=== PATIENT | female | born 1955 | race Caucasian/White ===

== ENCOUNTER → 2017-06-18 | Outpatient (CLI) | payer OTHER ==
--- NOTE | 2017-06-18 14:50 | Diagnostic Imaging Report ---
PROCEDURE: X-RAY CHEST, TWO VIEWS COMPARISON: None. INDICATIONS: ABDOMINAL PAIN, EPIGASTIC PAIN, CONSTIPATION FINDINGS: LUNGS: No consolidations or edema. PLEURA: No effusions or pneumothorax. HEART \T\ MEDIASTINUM: The heart is within normal size-limits. BONES \T\ SOFT TISSUES: No acute findings. CONCLUSION: No acute thoracic abnormality. Dictated by: James Jauregui M.D. on 06/18/2017 at 15:00 Electronically approved by: James Jauregui M.D. on 06/18/2017 at 15:00
--- NOTE | 2017-06-18 15:12 | Diagnostic Imaging Report ---
PROCEDURE:X-RAY ABDOMEN - KUB COMPARISON:None. INDICATIONS:ACUTE RESPIRATORY INFECTION FINDINGS: There is a non-obstructed bowel-gas pattern. Suture material and a loop of tubing overlies the epigastric region. There are no calcifications projected over the renal shadows, expected course of the ureters or bladder. There are no acute osseous abnormalities. CONCLUSION: Nonobstructive bowel gas pattern. Suture material and a nonspecific loop of tubing overlies the epigastric region. Dictated by: James Jauregui M.D. on 06/18/2017 at 15:21 Electronically approved by: James Jauregui M.D. on 06/18/2017 at 15:21
== END ==
LOC: RAD 13:48
PROVIDERS: ATTEND Family Medicine
DX: J06.9 Acute upper respiratory infection, unspecified (principal); K59.09 Other constipation
CPT/HCPCS: 71046; 74018

== ENCOUNTER 2017-09-11 08:41 | Observation (INO) | payer OTHER ==
[~2017-09-11] VITALS: Ht 162.6 cm; Wt 77.2 kg
--- OUTSIDE RECORDS SUMMARY | 2017-09-11 08:43 | XMS REPORT ---
Author Author [facility] Address Unknown Phone Unavailable Care Team Providers Care Managed Care Liaison Name Role Phone PEDRO PABLO MUNOZ Unavailable Unavailable Problems This patient has no known problems. Allergies, Adverse Reactions, Alerts This patient has no known allergies or adverse reactions. Medications This patient has no known medications. Results Test Description Test Time Test Comments Text Results Atomic Results Result Comments CHEST 2 VIEWS [place] [id number] [place] [id number] Patient Name: YULIA SUAZO MR #: [id number] : 1955 Age/Sex: 62/F Req #: [id number] Adm Physician: Ordered by: PEDRO PABLO MUNOZ MD Report #: [id number] Location: [facility] Room/Bed: _ Procedure: [id number] DX/CHEST 2 VIEWS Exam Date: Exam Time: REPORT STATUS: Signed PROCEDURE: X-RAY CHEST, TWO VIEWS COMPARISON: None. INDICATIONS: ABDOMINAL PAIN, EPIGASTIC PAIN, CONSTIPATION FINDINGS: LUNGS: No consolidations or edema. PLEURA: No effusions or pneumothorax. HEART T MEDIASTINUM: The heart is within normal size-limits. BONES T SOFT TISSUES: No acute findings. CONCLUSION: No acute thoracic abnormality. Dictated by: James Adrian M.D. on 06/18/2017 at 15:00 Electronically approved by : James Adrian M.D. on 06/18/2017 at 15:00 Dictated By: JAMES ADRIAN MD 1500 Transcribed By: ABELINO on 06/18/17 1500 COPY TO: PEDRO PABLO MUNOZ MD ABDOMEN-1VIEW (KUB) [place] [address] Patient Name: YULIA SUAZO MR #: [id number] : 1955 Age/Sex: 62/F Req #: [id number] Adm Physician: Ordered by: PEDRO PABLO MUNOZ MD Report #: [id number] Location: [facility] Room/Bed: _ Procedure: [id number] DX/ABDOMEN-1VIEW (KUB) Exam Date: 06/18/17 Exam Time: 1425 REPORT STATUS: Signed PROCEDURE: X- RAY ABDOMEN - KUB COMPARISON: None. INDICATIONS: ACUTE RESPIRATORY INFECTION FINDINGS: There is a non-obstructed bowel-gas pattern. Suture material and a loop of tubing overlies the epigastric region. There are no calcifications projected over the renal shadows, expected course of the ureters or bladder. There are no acute osseous abnormalities. CONCLUSION: Nonobstructive bowel gas pattern. Suture material and a nonspecific loop of tubing overlies the epigastric region. Dictated by: James Adrian M.D. on 06/18/2017 at 15:21 Electronically approved by: Jamse Adrian M.D. on 06/18/2017 at 15:21 Dictated By: JAMES ADRIAN MD 1521 Transcribed By: ABELINO on 06/18/17 1521 COPY TO: PEDRO PABLO MUNOZ MD
[2017-09-11] MEDS ORDERED: HYDROMORPHONE 1MG/1ML INJ IV STA (08:56)
[2017-09-11] MEDS ORDERED: ONDANSETRON HCL INJ 2 MG/ML VIAL IV STA (08:56)
[2017-09-11] MEDS ORDERED: SODIUM CHLORIDE 0.9% 1000ML 1,000 ML IV STA (08:56)
[2017-09-11] MEDS ORDERED: HYDROMORPHONE 2MG/ML INJ IV NR (09:15)
[2017-09-11] MEDS ORDERED: ONDANSETRON HCL 4 MG ORAL DISINTEGRATING TAB PO ONE (09:15)
[2017-09-11 09:17] LABS: BASOPHILS # (AUTO) 0.1 (0.0-0.1); EOSINOPHILS # (AUTO) 0.3 (0.0-0.4); EOSINOPHILS % 3.2 % (0.0-6.0); HEMATOCRIT 44.9 % (34.2-44.1); HEMOGLOBIN 15.2 g/dL (12.0-16.0); LYMPHOCYTES # (AUTO) 3.7 (1.0-3.2); LYMPHOCYTES % 35.5 % (18.0-39.1); MEAN CORPUSCULAR HEMOGLOBIN 28.9 pg (28-32); MEAN CORPUSCULAR HGB CONC 33.9 g/dL (31-35); MEAN CORPUSCULAR VOLUME 85.4 fL (81-99); MONOCYTES # (AUTO) 0.8 (0.2-0.8); NEUTROPHILS # (AUTO) 5.4 (2.1-6.9); NEUTROPHILS % 51.6 % (38.7-80.0); PLATELET COUNT 324 x10e3/uL (140-360); RED BLOOD COUNT 5.26 x10e6/uL (3.6-5.1); RED CELL DISTRIBUTION WIDTH 14.7 % (11.7-14.4)
[2017-09-11 09:26] LABS: CLARITY,URINE SL CLOUDY (CLEAR); COLOR,URINE YELLOW (YELLOW); KETONES,URINE NEGATIVE (NEGATIVE); LEUKOCYTE ESTERASE ,URINE NEGATIVE (NEGATIVE); NITRITE,URINE NEGATIVE (NEGATIVE); PROTEIN,URINE DIPSTICK TRACE (NEGATIVE); URINE UROBILINOGEN 0.2 mg/dL (0.2 - 1)
[2017-09-11 09:27] LABS: BILIRUBIN,URINE 1+ (NEGATIVE)
[2017-09-11 09:29] LABS: AMPHETAMINES SCREEN,URINE POSITIVE (NEGATIVE); BENZODIAZEPINES SCREEN,URINE POSITIVE (NEGATIVE); PHENCYCLIDINE SCREEN,URINE NEGATIVE (NEGATIVE)
[2017-09-11 09:35] LABS: ALANINE AMINOTRANSFERASE 16 IU/L (0-55); ALBUMIN 4.2 g/dL (3.5-5.0); ALBUMIN/GLOBULIN RATIO 0.9 (0.8-2.0); ALKALINE PHOSPHATASE 103 IU/L (40-150); ANION GAP 15.7 mmol/L (8-16); BLOOD UREA NITROGEN 8 mg/dL (7-26); BUN/CREATININE RATIO 9 (6-25); CALCIUM 9.8 mg/dL (8.4-10.2); CARBON DIOXIDE 24 mmol/L (22-29); CHLORIDE 102 mmol/L (98-107); CREATINE KINASE 152 IU/L (29-168); CREATININE, SERUM 0.93 mg/dL (0.57-1.11); EST GLOMERULAR FILTRATION RATE > 60 ML/MIN (60-); GLUCOSE 110 mg/dL (74-118); LIPASE 18 U/L (8-78); POTASSIUM 3.7 mmol/L (3.5-5.1); SODIUM 138 mmol/L (136-145)
[2017-09-11 09:44] LABS: BACTERIA,URINE FEW /HPF; EPITHELIAL CELLS,URINE FEW /LPF; RBC,URINE 0-5 /HPF (0-5); WBC,URINE (MAN) 0-5 /HPF (0-5)
[2017-09-11] MEDS ORDERED: ASPIRIN 81 MG CHEW TAB PO STA (09:55)
--- NOTE | 2017-09-11 11:44 | Diagnostic Imaging Report ---
PROCEDURE: CT ABDOMEN AND PELVIS WITH CONTRAST TECHNIQUE: The abdomen and pelvis were scanned utilizing a multidetector helical scanner from the diaphragm to the lesser trochanter after the IV administration of 100 cc of Isovue 370 and the oral administration of water. Coronal and sagittal multiplanar reformations were obtained. COMPARISON: Ultrasound abdomen 10/23/2015. INDICATIONS: UPPER ABDOMINAL PAIN FINDINGS: LOWER THORAX: Normal. HEPATOBILIARY: No focal hepatic lesions. The common bile duct measures 9.0 mm, on series 301 image 33. Trace intrahepatic biliary duct dilation is noted. No radiodense calculi are visualized. SPLEEN: No splenomegaly. PANCREAS: No focal masses or ductal dilatation. ADRENALS: No adrenal nodules. KIDNEYS/URETERS: No hydronephrosis, stones, or solid mass lesions. PELVIC ORGANS/BLADDER: Normal uterus and ovaries. PERITONEUM / RETROPERITONEUM: No free air or fluid. Normal urinary bladder. LYMPH NODES: No lymphadenopathy. VESSELS: Unremarkable. GI TRACT: No distention or wall thickening. Multiple diverticuli are present in the descending and sigmoid colon, without adjacent soft tissue inflammatory changes. Normal appendix. Moderate amount of retained feces limits intraluminal evaluation of the colon. Postoperative changes of the stomach. BONES AND SOFT TISSUES: Unremarkable. IMPRESSION: Dilation of the common bile duct and trace intrahepatic biliary duct dilation. No tomographic evidence of cholelithiasis or choledocholithiasis. Correlate with laboratory values for the need of additional imaging with an abdominal ultrasound or MRCP. Diverticulosis without evidence of diverticulitis. Dictated by: Ignacio Bennett M.D. on 09/11/2017 at 11:45 Electronically approved by: Ignacio Bennett M.D. on 09/11/2017 at 11:45
--- NOTE | 2017-09-11 12:46 | Diagnostic Imaging Report ---
PROCEDURE:GALLBLADDER ULTRASOUND COMPARISON:Same day CT 09/11/2017 INDICATIONS:Abdomen Pain FINDINGS: Liver: 16.2 cm in length in the right mid clavicular line. Normal hepatic parenchymal echogenicity. No focal mass. Main portal vein: 1 cm in diameter, within normal size limits. Hepatopetal flow. Gallbladder: No stones or sludge. No wall thickening. Common Bile Duct: 0.6 cm in diameter, within normal size limits. No echogenic filling defect. Sonographic Goldstein's sign: Negative Right kidney: 10.4 cm in length. No solid or cystic mass, echogenic calculi, or hydronephrosis. Normal parenchymal echogenicity. Pancreas: The visualized portions of the pancreas are normal. Inferior vena cava: Not well visualized secondary to overlying bowel gas. Aorta: Not well visualized secondary to overlying bowel gas. Ascites: None. CONCLUSION: No acute sonographic abnormality. Dictated by: James Jauregui M.D. on 09/11/2017 at 12:47 Electronically approved by: James Jauregui M.D. on 09/11/2017 at 12:47
[2017-09-11 13:00] VITALS: BP 145/75
[2017-09-11] MEDS ORDERED: NITROGLYCERIN 0.4 MG SUBL SL PRN (13:15)
[2017-09-11] MEDS ORDERED: SODIUM CHLORIDE FLUSH 10 ML SYR INJ PRN (13:15)
[2017-09-11] MEDS ORDERED: ASPIRIN 81 MG CHEW TAB PO ONE (13:15)
[2017-09-11] MEDS: FAMOTIDINE 20 MG TAB PO SCH (13:52)
[2017-09-11] MEDS ORDERED: SODIUM CHLORIDE 0.9% 50ML 50 ML ONE (15:21)
[2017-09-11] MEDS ORDERED: IOPAMIDOL 370 MG/ML 200 ML INFUS..BTL INJ ONE (15:21)
[2017-09-11] MEDS ORDERED: VALIUM5 MG PO (15:36)
[2017-09-11] MEDS ORDERED: OMEPRAZOLE40 MG PO (15:36)
[2017-09-11] MEDS ORDERED: DIAZEPAM 5 MG TAB PO PRN (15:45)
[2017-09-11] MEDS: DONNATAL/LIDOCAINE/MAALOX 30 ML SUSP PO PRN ×2 (15:55→22:49)
[2017-09-11 16:10] VITALS: BP 145/75
[2017-09-11 16:23] VITALS: BP 145/75
[2017-09-11] MEDS ORDERED: BISACODYL 10 MG SUPP PR PRN (17:15)
[2017-09-11] MEDS ORDERED: MAGNESIUM HYDROXIDE 30 ML UDC PO PRN (17:15)
[2017-09-11 17:42] LABS: CREATINE KINASE 98 IU/L (29-168)
[2017-09-11 20:00] VITALS: BP 103/81
[2017-09-12] VITALS: BP 111/69
[2017-09-12] MEDS: FAMOTIDINE 20 MG TAB PO SCH (02:43)
[2017-09-12 04:00] VITALS: BP 99/72
[2017-09-12 06:16] LABS: CHOL/HDL RATIO 4.2 (3.0-3.6)
[2017-09-12 06:23] LABS: CREATINE KINASE MB 1.8 ng/mL (0-5.0)
[2017-09-12 08:00] VITALS: BP 94/57
[2017-09-12] MEDS ORDERED: ASPIRIN 81 MG ENTERIC COATED PO SCH (09:00)
[2017-09-12] MEDS ORDERED: PANTOPRAZOLE SOD 40 MG TABEC PO SCH (09:00)
[2017-09-12] MEDS: DONNATAL/LIDOCAINE/MAALOX 30 ML SUSP PO PRN (09:31)
[2017-09-12] MEDS ORDERED: SENNA LAX8.6 MG PO (11:05)
[2017-09-12] MEDS ORDERED: MIRALAX17 GM PO (11:06)
[2017-09-12 11:47] VITALS: BP 94/57
[2017-09-12 12:00] VITALS: BP 121/78
--- NOTE | 2017-09-12 21:13 | Discharge Summary ---
PCP: Dr. Srinivasan Kim FINAL DIAGNOSES: 1. Generalized abdominal pain, recurrent. 2. Constipation. 3. Chest pain. 4. Urine drug screen positive for opiate, amphetamine, benzodiazepine, and cocaine. SUMMARY: Ifvyl-aoji-mha female came in with recurrent abdominal pain, severe this time. CT scan of the abdomen and pelvis along with abdominal ultrasound showed no acute findings. The patient's pain has improved. She did have a bowel movement. Apparently, the patient has stomach stapling some time and she is disabled from her recurrent abdominal pain and symptoms. Patient is otherwise stable. She will go home today. DISCHARGE MEDICATION: Maalox nyvg-tni-mdnonmo as needed. Senna-S 1 tablet b.i.d. MiraLAX 17 g b.i.d. Patient to resume her home medication. Discussed regarding positive urine drug screen with the patient. Job#: [id number]
== END 2017-09-12 12:30 | disposition home or self-care (01) ==
LOC: ER 08:41 → IMCU 13:57
PROVIDERS: ADMIT Internal Medicine; ATTEND Internal Medicine
DX: R10.13 Epigastric pain (principal); R07.9 Chest pain, unspecified; F13.10 Sedative, hypnotic or anxiolytic abuse, uncomplicated; F14.180 Cocaine abuse with cocaine-induced anxiety disorder; K59.00 Constipation, unspecified
CPT/HCPCS: 36415 ×2; 74177; 76705; 80053; 80061; 80307; 80320; 81001; 82550 ×2; 82553 ×2; 83690; 84484 ×2; 85025; 93005; 99284; G0378 ×2; J7030; Q9967